=== PATIENT | female | born 1950 | race Caucasian/White ===

== ENCOUNTER 2016-02-24 11:26 | Emergency (ER) | payer MEDICARE, OTHER ==
[~2016-02-24] VITALS: Ht 162.6 cm; Wt 67.8 kg
[2016-02-24 11:40] VITALS: BP 118/68; PULSE 72; RESP 16; TEMP 98.1; O2SAT 100
[2016-02-24] MEDS ORDERED: SITA1TAB2 PO (11:57)
[2016-02-24] MEDS ORDERED: ATOR20TA15 PO (11:57)
[2016-02-24] MEDS ORDERED: ASPI-110 PO (11:57)
[2016-02-24] MEDS ORDERED: METF500T PO (11:57)
--- NOTE | 2016-02-24 12:13 | PD ---
HPI Chief Complaint: Fall Time Seen by Provider: 11:58 Travel History International Travel<30 days: No Contact w/Intl Traveler<30days: No Traveled to known affect area: No History of Present Illness HPI This patient is brought in by her daughter. She tripped and fell 14 hours ago and struck her forehead on the ground. She does have headache. No LOC. No vomiting or neck pain. Severity is moderate. No alleviating factors. Denies other injury or complaint. Takes no blood thinners. sHe is vacationing from [facility] Past Medical History High Cholesterol: Yes Diabetes: Yes Patient Takes Glucophage: Yes Diminished Hearing: No Tetanus Vaccination: Unknown ?: Not Past Surgical History Appendectomy: Yes Section: Yes Social History Alcohol Use: Yes (SOC) Tobacco Use: Yes (2 PPD) Substance Use: No Allergies-Medications (Allergen,Severity, Reaction): Coded Allergies: No Known Allergies (Unverified , 02/24/16) Reported Meds & Prescriptions Reported Meds & Active Scripts Active Reported Aspirin 81 (Aspirin) 81 Mg Tabdr 81 Mg PO DAILY Atorvastatin (Atorvastatin Calcium) 20 Mg Tab 20 Mg PO HS Metformin (Metformin HCl) 500 Mg Tab 500 Mg PO BIDPC With meals Januvia (Sitagliptin Phosphate) 100 Mg Tab 100 Mg PO DAILY Review of Systems General / Constitutional: No: Fever Eyes: No: Visual changes HENT: Positive: Headaches Cardiovascular: No: Chest Pain or Discomfort Respiratory: No: Shortness of Breath Gastrointestinal: No: Abdominal Pain Genitourinary: No: Dysuria Musculoskeletal: No: Pain Skin: No Rash Neurologic: Positive: Headache, No: Weakness Psychiatric: No: Depression Endocrine: No: Polydipsia Hematologic/Lymphatic: No: Easy Bruising Physical Exam Narrative GENERAL: Well-nourished, well-developed patient in no apparent distress. SKIN: Warm and dry. HEAD: Swelling and ecchymosis to the left forehead. Tiny partially healed wound with Steri-Strip over it which was applied by the patient Normocephalic. EYES: Pupils equal and round. No scleral icterus. No injection or drainage. ENT: No nasal bleeding or discharge. Mucous membranes pink and moist. NECK: Trachea midline. No JVD. No midline tenderness CARDIOVASCULAR: Regular rate and rhythm. No murmur appreciated. RESPIRATORY: No accessory muscle use. Clear to auscultation. Breath sounds equal bilaterally. GASTROINTESTINAL: Abdomen soft, non-tender, nondistended. Hepatic and splenic margins not palpable. MUSCULOSKELETAL: No obvious deformities. No clubbing. No cyanosis. No edema. NEUROLOGICAL: Awake and alert. No obvious cranial nerve deficits. Motor grossly within normal limits. Normal speech. PSYCHIATRIC: Appropriate mood and affect; insight and judgment normal. Data Data Last Documented VS Vital Signs Date Time Temp Pulse Resp B/P Pulse Ox O2 Delivery O2 Flow Rate FiO2 02/24/16 11:51 16 100 02/24/16 11:40 98.1 72 118/[address] Brain W/O Iv Contrast(Rout) (02/24/16 ) [facility] Medical Decision Making Medical Screen Exam Complete: Yes Emergency Medical Condition: Yes Medical Record Reviewed: Yes Differential Diagnosis Intracranial hemorrhage, skull fracture, concussion Narrative Course I have reviewed the patient's electronic medical record. Patient is visiting, never been here before Patient neurologically intact. Brain CT is normal Recommend icing to the forehead. At this point tiny wound should heal spontaneously. Diagnosis Primary Impression: Head injury due to trauma Qualified Code: S09.90XA - Head injury due to trauma, initial encounter Additional Instructions: The patient was advised to follow up with their physician and return if they worsen. Apply ice to forehead Med/Other Pt SpecificInfo: Other Disposition: 01 DISCHARGE HOME Condition: Stable Lex Isabel MD Feb 24, 2016 12:13
--- NOTE | 2016-02-24 13:29 | RADHPO ---
EXAM DATE/TIME: 02/24/2016 12:47 [facility] COMPARISON: No previous studies available for comparison. INDICATIONS : Fell and hit head. Dizziness. RADIATION DOSE: 59.63 CTDIvol (mGy) MEDICAL HISTORY : Hypercholesterolemia. Diabetes. SURGICAL HISTORY : Appendectomy. section. ENCOUNTER: Initial ACUITY: 1 day PAIN SCALE: 3/10 LOCATION: Left frontal TECHNIQUE: Multiple contiguous axial images were obtained of the head. Using automated exposure control and adj ustment of the mA and/or kV according to patient size, radiation dose was kept as low as reasonably a chievable to obtain optimal diagnostic quality images. FINDINGS: CEREBRUM: The ventricles are normal for age. No evidence of midline shift, mass lesion, hemorrhage or acute in farction. No extra-axial fluid collections are seen. POSTERIOR FOSSA: The cerebellum and brainstem are intact. The 4th ventricle is midline. The cerebellopontine angle i s unremarkable. EXTRACRANIAL: The visualized portion of the orbits is intact. SKULL: The calvaria is intact. No evidence of skull fracture. CONCLUSION: No acute disease. No evidence of acute infarct, hemorrhage, mass or edema. Ector Claudio MD on February 24, 2016 at 13:27 Board Certified Radiologist. This report was verified electronically.
[2016-02-24 14:20] VITALS: BP 141/70
== END 2016-02-24 14:21 | disposition home or self-care (01) ==
LOC: PHED 11:26
DX: S09.90XA Unspecified injury of head, initial encounter (principal); E78.00 Pure hypercholesterolemia, unspecified; E11.9 Type 2 diabetes mellitus without complications; Z79.4 Long term (current) use of insulin; F17.210 Nicotine dependence, cigarettes, uncomplicated; W01.0XXA Fall on same level from slipping, tripping and stumbling without subsequent striking against object, initial encounter; Y93.9 Activity, unspecified; Y99.9 Unspecified external cause status
CPT/HCPCS: 70450